=== PATIENT | female | born 1975 | race Caucasian/White ===

== ENCOUNTER → 2020-03-15 | Outpatient (CLI) | payer OTHER ==
[~2020-03-15] MED LIST: ADDERALL; ADDERALL OR; ALPRAZOLAM1 M1 PO; GEODON; GEODON60 MG PO; GEODON80 MG PO; HYDROCODONE-AP1 EACH PO; LANTUS; NEXIUM; NORCO 5-325 TA1 EACH PO; NOVOLOG100 UNIT/1; PHENERGAN 25 MG25 M1 PO; PROMETHAZINE IM; PROMETHAZINE12.5 M1; SOMA250 MG PO
== END ==
LOC: RAD 12:44
PROVIDERS: ATTEND Family Medicine
DX: M25.561 Pain in right knee (principal)

== ENCOUNTER 2020-06-18 01:57 | Inpatient (IN) | payer MEDICARE ==
[~2020-06-18] VITALS: Ht 152.4 cm; Wt 109.8 kg
[2020-06-18] VITALS (7 sets, daily range): BP systolic 133–178; BP diastolic 78–102
[~2020-06-18 01:57] MED LIST changes: -LANTUS; +LANTUS SUBQ
[2020-06-18] MEDS ORDERED: ALPRAZOLAM 0.50.5 M1 PO ×2 (04:00)
[2020-06-18] MEDS ORDERED: AMPHETAMINE SAL30 MG PO ×2 (04:01)
[2020-06-18] MEDS ORDERED: OXYCODONE HCL20 M1 PO ×2 (04:01)
[2020-06-18] MEDS ORDERED: METHADONE HCL 110 M1 PO ×2 (04:01)
[2020-06-18 05:40] LABS: CORRECTED WBC 12.3 thou/uL (4.0-11.0); HEMATOCRIT 43.7 % (37.0-47.0); HEMOGLOBIN 14.3 gm/dL (12.0-15.0); LYMPHOCYTES 23.3 % (24.0-44.0); MCH 29.7 pg (26.0-34.0); MCHC 32.7 % (28.0-37.0); MCV 90.9 fL (80.0-100.0); MONOCYTES 7.2 % (1.0-8.0); PLATELET COUNT 338 thou/uL (150-400); POLYS 67.6 % (36.0-66.0); RBC 4.81 mil/uL (4.20-5.00); RDW 13.5 % (10.5-14.5); WBC 12.3 thou/uL (4.0-11.0)
[2020-06-18 05:41] LABS: ABSOLUTE NEUTROPHILS 8.3 thou/uL (1.4-8.2); BASOPHILS 0.8 % (0.0-2.0); EOSINOPHILS 1.1 % (0.0-3.0)
[2020-06-18 05:42] LABS: ANION GAP 12 mmol/L (7-16); CHLORIDE 96 mmol/L (98-107); CO2 25 mmol/L (21-32); POTASSIUM 4.1 mmol/L (3.5-5.1); SODIUM 133 mmol/L (136-145)
[2020-06-18 05:44] LABS: BUN 8 mg/dL (7-18); CALCIUM 9.6 mg/dL (8.5-10.1); GLUCOSE 306 mg/dL (74-106); LIPASE 23 U/L (73-393); SGOT 60 U/L (15-37); TOTAL BILIRUBIN 0.3 mg/dL (0.2-1.0)
[2020-06-18 05:45] LABS: ALBUMIN 3.3 g/dL (3.4-5.0); SGPT 88 U/L (14-59); TOTAL PROTEIN 7.9 g/dL (6.4-8.2); TROPONIN-I <0.06 ng/mL (<0.06)
[2020-06-18 05:49] LABS: URINE CLARITY CLEAR; URINE COLOR YELLOW
[2020-06-18 05:50] LABS: URINE GLUCOSE-RANDOM* 3+ (Negative); URINE KETONES TRACE (Negative); URINE PROTEIN (DIPSTICK) NEGATIVE (Negative); URINE SPECIFIC GRAVITY 1.015 (1.005-1.035)
[2020-06-18 05:53] LABS: SQUAMOUS 4-10 Moderate /LPF (0-3); URINE BILIRUBIN NEGATIVE (Negative); URINE BLOOD 2+ (Negative); URINE LEUKOCYTES-REFLEX NEGATIVE (Negative); URINE NITRITE-REFLEX NEGATIVE (Negative); URINE UROBILINOGEN 0.2 E.U./dl (0.2-1.0)
[2020-06-18 05:54] LABS: BACTERIA-REFLEX 1-9 Few /HPF (None Seen); CASTS None Seen /LPF (None Seen); MUCUS None Seen strn/LPF (None Seen); URINE RBC 0-2 Rare /HPF (0-2); URINE WBC-REFLEX None Seen /HPF (0-5); YEAST-REFLEX Present (None Seen)
[2020-06-18 05:58] LABS: CRYSTALS None Seen /LPF (None Seen)
--- NOTE | 2020-06-18 19:55 | NUR ---
ASSUMED PATIENT CARE AT 0700. A/O 3. ANXIOUS.C/O BLI KNEE PAIN. OFF ISO. SLOWLY TOWARDS POC GOALS.
[2020-06-19 04:45] VITALS: BP 128/68
--- NOTE | 2020-06-19 07:26 | EKG ---
[address] [address] ELECTROCARDIOGRAM REPORT Name: ALICE PICKARDROMEL DUMONT Room #: 361-P ADM IN M.R.#: [id number] Admission: 06/18/20 Attend Phys: Ismael Morelos MD, FAAF Discharge: Date of : 79 Report #: [id number] [facility] ED Test Date: 2020-06-18 Test Time: 02:14:46 Pat Name: ANNELISE PICKARD Department: Room: 361 Gender: F Nicker: : 1975 Requested By: Hank Archer Order Number: [id number] : Rehan Payne Measurements Intervals [place] Rate: 116 P: 52 LA: 159 QRS: 14 QRSD: 85 T: 56 QT: 319 QTc: 444 Interpretive Statements Sinus tachycardia Compared to ECG 10/28/2011 01:18:34 Sinus rhythm no longer present Electronically Signed On 06-19-2020 7:26:08 POLICE CHIEF DEPUTY by Rehan Payne [email or web address] <ELECTRONICALLY SIGNED> By: Rehan Payne MD, [facility] 06/19/20 0726 0214 0214 Rehan Payne MD, FACC /EPI
--- NOTE | 2020-06-19 07:33 | NUR ---
PT AMBULATING IN ROOM WITH STANDBY ASSIST. VOIDING PER TOILET. PT IS AN ELOPEMENT RISK. CAN BE COMBATIVE. FINALLY SLEPT AFTER ORDER FOR SEROQUEL OBTAINED. SITTER ALSO ORDERED. FREQUENT OBSERVATION.
[2020-06-19 08:00] VITALS: BP 147/76
[2020-06-19 08:42] LABS: ABSOLUTE NEUTROPHILS 4.2 thou/uL (1.4-8.2); BASOPHILS 1.4 % (0.0-2.0); EOSINOPHILS 2.6 % (0.0-3.0); HEMATOCRIT 37.4 % (37.0-47.0); LYMPHOCYTES 35.4 % (24.0-44.0); MCH 30.1 pg (26.0-34.0); MCHC 32.8 g/dL (28.0-37.0); MCV 91.5 fL (80.0-100.0); MONOCYTES 6.9 % (1.0-8.0); PLATELET COUNT 270 thou/uL (150-400); POLYS 53.7 % (36.0-66.0); RBC 4.09 mil/uL (4.20-5.00); RDW 13.8 % (10.5-14.5); WBC 7.9 thou/uL (4.0-11.0)
[2020-06-19 08:43] LABS: HEMOGLOBIN 12.3 gm/dL (12.0-15.0)
[2020-06-19 08:56] LABS: ALBUMIN 2.6 g/dL (3.4-5.0); CALCIUM 8.4 mg/dL (8.5-10.1); CREATININE 0.8 mg/dL (0.6-1.0); POTASSIUM 4.3 mmol/L (3.5-5.1); TOTAL BILIRUBIN 0.3 mg/dL (0.2-1.0); TOTAL PROTEIN 6.4 g/dL (6.4-8.2)
--- NOTE | 2020-06-19 11:15 | HC ---
[place] [address] CONSULTATION Name: ANNELISE PICKARD Room #: 361-P ADM IN M.R.#: [id number] Admission: 06/18/20 Attend Phys: Ismael Morelos MD, [facility] Discharge: Date of : 79 Report #: [id number] THIS REPORT FOR: cc: Ismael Morelos MD [facility] Ismael Morelos MD [facility] Sujit Hernandez MD ~ DATE OF SERVICE: 06/19/2020 INFECTIOUS DISEASE CONSULTATION ATTENDING PHYSICIAN: Dr. Ismael Morelos. REASON FOR EVALUATION: Lactic acidemia suspected sepsis. HISTORY OF SUBJECTIVE: Chart reviewed, patient examined. This is a 44-year-old woman with a history of diabetes mellitus, insulin requiring, also seizure disorder, was admitted through Emergency Room with complaints of chest-related discomfort as well as progressive dyspnea. Evaluation noted lactic acidosis, elevated at 6.8, did have a glucose in the 300-400 range. Apparently, she reported history of some chills as well as some emesis. Evaluation was undertaken. Chest x-ray was otherwise unremarkable. COVID testing with antigen and PCR was negative. Mildly elevated hepatic transaminases. She was given a dose of Zosyn this morning. She is quite somnolent. She does arouse briefly, really does not attempt to engage. ALLERGIES: ERYTHROMYCIN, PROCHLORPERAZINE, HALDOL, MORPHINE, AZITHROMYCIN, MEPERIDINE, LEVOTHYROXINE. CURRENT MEDICATIONS: Include quetiapine, insulin glargine, alprazolam, oxycodone, dextrose, insulin lispro, methadone. PAST MEDICAL HISTORY: As noted above, diabetes mellitus type 2, insulin requiring; history of seizure disorder, schizophrenia, bipolar disease. SOCIAL HISTORY: Nonsmoker, no ethanol, no illicit drug use. FAMILY HISTORY: Noncontributory. REVIEW OF SYSTEMS: Otherwise, limited. PHYSICAL EXAMINATION: GENERAL: She is as noted quite lethargic, appears somewhat chronically ill, undernourished, [id number]-tk-[id number] distress. VITAL SIGNS: Temperature 98.1, pulse 84, respirations 19, blood pressure 147/76. [address] [address] CONSULTATION Name: ANNELISE PICKARD JULIA Room #: 361-P [facility] IN M.R.#: [id number] Admission: 06/18/20 Attend Phys: Ismael Morelos MD, FAAF Discharge: Date of : 79 Report #: [id number] SKIN: Warm, dry, no rashes. She is mildly diaphoretic. HEENT: Normocephalic. Extraocular muscles intact. She is awake briefly. NECK: Supple. LUNGS: Diminished breath sounds, otherwise clear. HEART: Regular. I do not appreciate a murmur. ABDOMEN: Soft, nontender, nondistended. EXTREMITIES: No cyanosis. GENITOURINARY AND RECTAL: Deferred. LABORATORY DATA: Urine culture with greater than ____ normal genitourinary tract eliseo. Lactic acid is now serially down to 1.5. Electrolytes: Sodium 136, potassium 4.3, chloride 100, bicarbonate is 28, anion gap of 8, BUN and creatinine 10 and 0.8, glucose is 420. AST is now 26, ALT of 52. Albumin of 2.6, total protein 6.4. Estimated GFR of 79. CBC: White count 7.9, H and H 12.3 and 37.4, platelets of 270. Blood cultures are sterile thus far. ASSESSMENT: Possible sepsis, complicated by lactic acidemia and mayyg-iu-sfqfmwm encephalopathy. At this point, it is not evident if there is any source of a pyogenic infection, it can entirely exclude a viral etiology. I think it is reasonable to, since things are correcting, hold antibacterials for this at this point. We will certainly adjust our approach as more evidence becomes available. Continue supportive care, blood sugar control. Increase activity, return to pre-illness lifestyle as possible. <ELECTRONICALLY SIGNED> By: Sujit Hernandez MD 06/19/20 1115 1027 1041 Sujit Hernandez MD /nt
[2020-06-19 12:00] VITALS: BP 134/75
[2020-06-19 15:39] VITALS: BP 152/75
--- NOTE | 2020-06-19 16:12 | NUR ---
44-year-old female presents to the ED with a chief complaint of chest discomfort, shortness of breath, fast heart rate and cold sweats. Patient reports the past 3 days prior to admission chills with shortness of breath associated with cough and vomiting. NOTE: ED reports 300-400 blood glucose levels. COVID PCR negative on 06-18-20. The patient has been admitted with Lactic Acidosis/sepsis, hyperglycemia, IDDM and right knee pain. ID has been consulted and will continue off antibiotics with no apparent focus of pyogenic infection. Cultures unrevealing per ID at this point but will continue to monitor. Per ED assessment patient arrived to the ED in a private vehicle and was assessed to be A&0 x4. Per nursing admission assessment patient states that her designated patient product representative is her mother Darby at [phone]. Per Dr[address] Morelos the patient will be discharged home on Friday06-20-20 per attending nurse on 06-19-20. Nurse also indicated that patient remains on a 1:1 for elopement precautions. Spoke with patient who wishes to go home and reiterated importance of remaining until medically cleared with an MD order. Did call to nurses station as patient believes she needs her BS checked. CM will follow for any discharge needs.
--- NOTE | 2020-06-19 18:28 | NUR ---
assumed care of pt at 0700. pt aox2 moderately anxious, frequently saying she wants to go home, making several attempts to leave. otherwsie eating well. complains of pain to knee. scans thus far unremarkable. labs improving. possible d/c tomorrow.
[2020-06-20 08:50] VITALS: BP 154/85
--- NOTE | 2020-06-20 11:31 | NUR ---
care assumed at 0700, pt alert and oriented x2, mostly anxious. denies chest pain, nausea and vomitting. pt has a sitter due to multiple attempts of wanting to leave.pt complains of left knee pain, pain med given per order. fall precautions in place. anticipating for d/c soon.
[2020-06-20 18:51] VITALS: BP 143/102
[2020-06-20 21:00] VITALS: BP 142/90
--- NOTE | 2020-06-20 22:42 | NUR ---
PT REMAINS ON 1:1, PT INITIALLY RESTLESS WANTING TO GET OUT OF BED AND WALK WHILE ALSO COMPLIANING OF R KNEE SWELLING AND PAIN. PT EASILY REDIRECTED TO WATCHING TV, PT COMPLIANT WITH MEDICATION AND PRN FOR ANXIETY THAT SHE REQUESTED. IVF INTACT. HS SNACK PROVIDED. PT WAS NOT COMPLIANT WITH INSULIN SHE REPORTED THAT SHE HAS BEEN HAVING LOW FSBS IN THE MORNINGS AND AFTERNOONS. PT DISCUSSED HOW IF THEY FIX HER KNEE THEY ARE GOING TO PUT A TRACKER CHIP IN HER AND SHE WILL NOT ALLOW THAT. PT ALSO QUESTIONED NURSE IF THERE WAS MEDICINE IN HER ICE CREAM SHE WAS REASSURED THERE WAS NOT.
[2020-06-21 02:58] VITALS: BP 156/86
--- NOTE | 2020-06-21 03:14 | NUR ---
PT AWAKENED TEARFUL STATING PEOPLE ARE PLOTTING TO KILL HER, THAT THERE ARE 26 STATES ON THE 5 DOLLAR PILL REPETITIVELY. PT REQUESTED PRN FOR KNEE PAIN AND PROVIDED. PT REPORTS THAT HER THOUGHTS NEED TO BE STOPPED. PT REDIRECTED WITH SNACK. REMAINS ON 1:1.
--- NOTE | 2020-06-21 05:55 | NUR ---
PT SLEEPING HEAVILY, WILL HAVE DAY SHIFT GIVE PT AMPHETAMINE MEDICATION.
[2020-06-21 07:13] VITALS: BP 147/78; BP 199/82
--- NOTE | 2020-06-21 12:12 | NUR ---
CARE ASSUMED AT 0700, PT ALERT AND ORIENTED X2, ANXIOUS AND IMPULSIVE AT TIMES. PT CONTINUE TO HAVE A SITTER. COMPLAINS OF KNEE PAIN, PAIN MED GIVEN PER ORDER. HIDA SCAN TO TOMORROW. FALL PRECAUTIONS IN PLACE. WILL CONTINUE TO MONITOR.
--- NOTE | 2020-06-21 13:07 | NUR ---
SW reviewed chart and spoke with nursing. Pt has 1:1 sitter at bedside. Enhanced Isolation precautions have been discontinued. Pt to have PIPIDA scan tomorrow. Plan is for pt to discharge home when medically stable. SW is following to assist as needed with discharge planning.
--- NOTE | 2020-06-21 18:10 | H ---
[facility] [place] [address] HISTORY AND PHYSICAL Name: ANNELISE PICKARD Room #: 462-P ADM IN M.R.#: [id number] Admission: 06/18/20 Attend Phys: Ismael Morelos MD, FAAF Discharge: Date of : 79 Report #: [id number] THIS REPORT FOR: cc: Ismael Morelos MD FAAFP FACEP Ismael Morelos MD FAAFP FACEP Ismael Morelos MD FAAFP FACEP ~ DATE OF SERVICE: 06/18/2020 CHIEF COMPLAINT: Sepsis; lactic acidosis. HISTORY OF PRESENT ILLNESS: The patient is a 44-year-old white female, patient of mine over many years, feeling poorly over the last 4 days. She went to [facility] on 06/17 and was sent home. She went to [facility] Emergency Department, was found to have an elevated lactate level, elevated white count with no obvious source of infection. Admitted for possible sepsis and lactic acidosis. Her blood sugar was high. She reported over 600 at home. It was in the 300 range here and she was started on insulin. She also started on Zosyn empirically and admitted to hospital. COVID-19 test was negative. PAST MEDICAL HISTORY: Insulin-dependent diabetes mellitus, seizure disorder, Port-A-Cath and Port-A-Cath removal, hernia repair, abdominal surgery, schizophrenia, bipolar affective disorder. MEDICATIONS: NovoLog sliding scale, Lantus insulin 20 units subcutaneous b.i.d., Nexium 40 mg 1 p.o. a.m., alprazolam 0.5 mg 1 p.o. b.i.d. p.r.n. anxiety, Adderall 30 mg 1 p.o. t.i.d., methadone 10 mg 2 p.o. b.i.d., oxycodone 20 mg 1 p.o. q. 6 hours p.r.n. pain. ALLERGIES: ZITHROMAX, HALDOL, LEVAQUIN, MORPHINE, ERYTHROMYCIN, DEMEROL, AND PROCHLORPERAZINE. SOCIAL HISTORY: Nondrinker. She has been involved with substance abuse in the past and smokes cigarettes. Lives with her family. Recently lost her boyfriend to heart attack in 2019. FAMILY HISTORY: Positive for diabetes. REVIEW OF SYSTEMS: GENERAL: She has had malaise, chills and fatigue. RESPIRATORY: Cough, exertional dyspnea. She had some chest pain, also exertional. GASTROINTESTINAL: She has nausea and some vomiting. Denies abdominal pain. GENITOURINARY: She has had frequency, possibly associated with her elevated blood sugar. [address] [address] HISTORY AND PHYSICAL Name: ANNELISE PICKARD JULIA Room #: 462-P ADM IN M.R.#: [id number] Admission: 06/18/20 Attend Phys: Ismael Morelos MD, FAAF Discharge: Date of : 79 Report #: [id number] Remainder of system review is negative. OBJECTIVE: VITAL SIGNS: Temperature 37.4, pulse 121, respirations 20, blood pressure 178/102, pulse ox on room air is 99%. She weighs 170 pounds. She is 5 feet tall. GENERAL: She is in no acute distress. Speaks full sentences appropriately. HEENT: Pupils equal, round, reactive to light and accommodation. Extraocular muscles intact. Pharynx unremarkable. NECK: Supple. COR: S1, S2. CHEST: Clear. ABDOMEN: Soft, nontender. EXTREMITIES: No cyanosis, clubbing or edema. Her right knee is mildly larger than the left knee. There is no erythema or obvious swelling. She is anteriorly tender mildly. NEUROLOGIC: She is alert and oriented x3, has no motor or sensory deficits. IMAGING: EKG, sinus tachycardia, rate 160, no ST segment changes. Chest x-ray was clear, reviewed by. LABORATORY EVALUATION: CBC: White count is 12.3, hemoglobin 14.3, hematocrit 43.7, platelets 338,000. Differential on the white count, 67% segmented neutrophils, 23% lymphocytes, 7% monocytes, 1% eosinophils, 1% basophils. COVID test was negative. Chemistry: Sodium 133, potassium 4.1, chloride 96, CO2 of 25, anion gap is 12, BUN 8, creatinine 1.0, estimated glomerular filtration rate 61, glucose 306. Fingerstick 345. Bilirubin 0.3, calcium is 9.6, AST 60, ALT 88, alkaline phosphatase 228. Troponin less than 0.06. Total protein 7.9, albumin 3.3, lipase 23. D-dimer 0.46. ASSESSMENT: Lactic acidosis, possibly associated with sepsis. Others; hyperglycemia, insulin-dependent diabetes mellitus, back and knee pain. PLAN: Continue antibiotics. Recheck lactate after IV fluids and antibiotics initiated. ID consult requested. <ELECTRONICALLY SIGNED> By: Ismael Morelos MD, FAAFP, FACEP 06/21/20 1810 1439 0721 Ismael Morelos MD, FAAFP, FACEP /nt
--- NOTE | 2020-06-21 20:19 | NUR ---
Assumed pt care this am, VS stable has a 1:1 sitter. Stable on her gait and used the toilet. POC followed with no signs or distress noted, alert and oriented x 2, bipolar and schitz is evident. endorsed to the night nurse.
[2020-06-21 20:32] VITALS: BP 135/73
--- NOTE | 2020-06-22 04:14 | NUR ---
Pt. rested quietly at intervals during the night when checked on during frequent rounds. Continues to have a sitter due to high flight risk. She has not attempted to leave the room since sitter has been in there this shift. She c/o chronic generalized pain and has been medicated for it (see emar) with relief noted.
[2020-06-22 07:50] VITALS: BP 146/84
[2020-06-22 09:41] LABS: ABSOLUTE NEUTROPHILS 5.2 thou/uL (1.4-8.2); BASOPHILS 0.5 % (0.0-2.0); EOSINOPHILS 3.8 % (0.0-3.0); HEMATOCRIT 38.5 % (37.0-47.0); HEMOGLOBIN 12.7 gm/dL (12.0-15.0); LYMPHOCYTES 34.1 % (24.0-44.0); MCH 30.2 pg (26.0-34.0); MCHC 33.1 g/dL (28.0-37.0); MCV 91.4 fL (80.0-100.0); MONOCYTES 7.4 % (1.0-8.0); PLATELET COUNT 302 thou/uL (150-400); POLYS 54.2 % (36.0-66.0); RBC 4.21 mil/uL (4.20-5.00); RDW 13.6 % (10.5-14.5); WBC 9.6 thou/uL (4.0-11.0)
[2020-06-22 10:02] LABS: ALBUMIN 2.6 g/dL (3.4-5.0); CALCIUM 8.3 mg/dL (8.5-10.1); CREATININE 0.6 mg/dL (0.6-1.0); POTASSIUM 3.7 mmol/L (3.5-5.1); TOTAL BILIRUBIN 0.2 mg/dL (0.2-1.0); TOTAL PROTEIN 6.4 g/dL (6.4-8.2)
--- NOTE | 2020-06-22 12:47 | NUR ---
Nutrition Note: Pt seen for LOS. Pt noted to have good appetite at present, eating 95-100% of meals. Denies wt loss TIN STACKER. No new wt taken since 06/18. No c/o GI distress at present. No pressure ulcers noted. Pt remains low nutritional risk at present.
--- NOTE | 2020-06-22 13:28 | NUR ---
ASSUMED PT CARE THIS AM. PT VSS, A&OX2. PT VERY PARANOID WITH CARES SO FAR THIS SHIFT. KEEPS STATING "DONT PUT A CHIP IN ME". COMPLAINS OF GENERALIZED PAIN, RESPONDING WELL TO MEDS GIVEN PER EMAR. PT HAD PIPIDA SCAN THIS MORNING, AND MEDS WERE HELD UNTIL PATIENT RETURNED FROM SCAN. PT IS CONTINENT, AND AMBULATES TO THE BATHROOM WITH LITTLE ASSIST. PT HAS A 1:1 SITTER. IV PATENT, FLUIDS INFUSING WELL.
--- NOTE | 2020-06-22 16:07 | NUR ---
PT HAD PIPIDA SCAN DONE THIS DAY. PLAN IS FOR PT TO RETURN HOME OCNE MEDICALLY STABLE. PT CONTINUES WITH 1:1 SITTER RELATED TO ELOPEMENT RISK. CM TO FOLLOW INDICATED WITH DC PLANNING.
[2020-06-22] MEDS ORDERED: QUETIAPINE FUM300 MG PO ×2 (16:22)
[2020-06-22 17:47] VITALS: BP 146/84
== END 2020-06-22 18:19 | disposition home or self-care (01) | DRG 871 ==
LOC: ER 01:57 → EROBS 05:39 → 3W 05:39 → 4W 06-21 14:21
PROVIDERS: Emergency Medicine; ADMIT Family Medicine; ATTEND Family Medicine
DX: A41.9 Sepsis, unspecified organism (principal); G92 Toxic encephalopathy; K82.1 Hydrops of gallbladder; E11.65 Type 2 diabetes mellitus with hyperglycemia; G40.909 Epilepsy, unspecified, not intractable, without status epilepticus; M25.561 Pain in right knee; M25.461 Effusion, right knee; F25.0 Schizoaffective disorder, bipolar type; S80.01XA Contusion of right knee, initial encounter; Z20.822 Contact with and (suspected) exposure to COVID-19; Z88.1 Allergy status to other antibiotic agents; Z88.6 Allergy status to analgesic agent; Z88.8 Allergy status to other drugs, medicaments and biological substances; Z79.4 Long term (current) use of insulin; X58.XXXA Exposure to other specified factors, initial encounter; Y93.89 Activity, other specified; Y92.89 Other specified places as the place of occurrence of the external cause; Y99.8 Other external cause status
CPT/HCPCS: 10047; 10779; 10879

== ENCOUNTER 2020-06-29 00:34 | Emergency (ER) | payer MEDICARE ==
[~2020-06-29] VITALS: Ht 152.4 cm; Wt 108.1 kg
[~2020-06-29 00:34] MED LIST changes: +ALPRAZOLAM 0.50.5 M1 PO; +AMPHETAMINE SAL30 MG PO; +METHADONE HCL 110 M1 PO; +OXYCODONE HCL20 M1 PO; +QUETIAPINE FUM300 MG PO
[2020-06-29 00:59] LABS: ABSOLUTE NEUTROPHILS 4.7 thou/uL (1.4-8.2); BASOPHILS 0.9 % (0.0-2.0); EOSINOPHILS 3.1 % (0.0-3.0); HEMOGLOBIN 13.2 gm/dL (12.0-15.0); LYMPHOCYTES 29.7 % (24.0-44.0); MCH 29.7 pg (26.0-34.0); MCHC 32.9 g/dL (28.0-37.0); MCV 90.4 fL (80.0-100.0); MONOCYTES 8.2 % (1.0-8.0); PLATELET COUNT 310 thou/uL (150-400); POLYS 58.1 % (36.0-66.0); RBC 4.43 mil/uL (4.20-5.00); RDW 13.5 % (10.5-14.5); WBC 8.1 thou/uL (4.0-11.0)
[2020-06-29 01:06] LABS: URINE BILIRUBIN NEGATIVE (Negative); URINE BLOOD 1+ (Negative); URINE CLARITY CLEAR; URINE COLOR YELLOW; URINE GLUCOSE-RANDOM* 3+ (Negative); URINE KETONES NEGATIVE (Negative); URINE LEUKOCYTES-REFLEX NEGATIVE (Negative); URINE NITRITE-REFLEX NEGATIVE (Negative); URINE PROTEIN (DIPSTICK) NEGATIVE (Negative); URINE SPECIFIC GRAVITY 1.015 (1.005-1.035); URINE UROBILINOGEN 0.2 E.U./dl (0.2-1.0)
[2020-06-29 01:13] LABS: ANION GAP 12 mmol/L (7-16); BUN 8 mg/dL (7-18); CALCIUM 9.3 mg/dL (8.5-10.1); CHLORIDE 95 mmol/L (98-107); CO2 28 mmol/L (21-32); GLUCOSE 397 mg/dL (74-106); POTASSIUM 4.2 mmol/L (3.5-5.1); SODIUM 135 mmol/L (136-145)
[2020-06-29 01:23] LABS: SGOT 29 U/L (15-37); SGPT 34 U/L (30-65); TOTAL BILIRUBIN 0.2 mg/dL (0.2-1.0); TROPONIN-I <0.06 ng/mL (<0.06)
[2020-06-29 01:30] LABS: BACTERIA-REFLEX 1-9 Few /HPF (None Seen); CASTS None Seen /LPF (None Seen); MUCUS None Seen strn/LPF (None Seen); SQUAMOUS 0-3 Few /LPF (0-3); URINE RBC 0-2 Rare /HPF (0-2); URINE WBC-REFLEX 0-5 Rare /HPF (0-5)
[2020-06-29 01:31] LABS: CRYSTALS None Seen /LPF (None Seen)
[2020-06-29 03:28] VITALS: BP 177/102
--- NOTE | 2020-06-29 07:09 | EKG ---
[place] [address] [facility] [place] [address] ELECTROCARDIOGRAM REPORT Name: ANNELISE PICKARD Room #: DEP [place]#: [id number] Admission: 06/29/20 Attend Phys: Discharge: 06/29/20 Date of : 79 Report #: [id number] [facility] ED Test Date: 2020-06-29 Test Time: 00:51:17 Pat Name: ANNELISE PICKARD Department: Room: Gender: F [employer]: PETER : 1975 Requested By: Kulwant Acuna Order Number: [id number] MD: Rehan Payne Measurements Intervals [place] Rate: 96 P: 46 WI: 156 QRS: 33 QRSD: 87 T: 78 QT: 361 QTc: 457 Interpretive Statements Sinus rhythm Probable left atrial enlargement Compared to ECG 06/18/2020 02:14:46 Sinus tachycardia no longer present Electronically Signed On 06-29-2020 7:09:30 AMMUNITION COMPONENTS INSPECTOR by Rehan Payne [email or web address] <ELECTRONICALLY SIGNED> By: Rehan Payne MD, [facility] 06/29/20 0709 005 0051 Rehan Payne MD, FACC /EPI
== END 2020-06-29 03:36 | disposition home or self-care (01) ==
LOC: ER 00:34
PROVIDERS: Emergency Medicine
DX: S60.420A Blister (nonthermal) of right index finger, initial encounter (principal); E11.65 Type 2 diabetes mellitus with hyperglycemia; M25.561 Pain in right knee; Z88.1 Allergy status to other antibiotic agents; Z88.8 Allergy status to other drugs, medicaments and biological substances; Z88.5 Allergy status to narcotic agent; Z79.4 Long term (current) use of insulin; Z79.899 Other long term (current) drug therapy; Z98.890 Other specified postprocedural states; X58.XXXA Exposure to other specified factors, initial encounter; Y93.89 Activity, other specified; Y92.89 Other specified places as the place of occurrence of the external cause; Y99.9 Unspecified external cause status

== ENCOUNTER 2020-08-30 12:01 | Emergency (ER) | payer MEDICARE ==
[~2020-08-30] VITALS: Ht 152.4 cm; Wt 102.5 kg
[2020-08-30 14:21] LABS: BASOPHILS 0.9 % (0.0-2.0); EOSINOPHILS 1.4 % (0.0-3.0); HEMATOCRIT 43.1 % (37.0-47.0); HEMOGLOBIN 14.5 gm/dL (12.0-15.0); MCH 30.2 pg (26.0-34.0); MCHC 33.7 g/dL (28.0-37.0); MCV 89.6 fL (80.0-100.0); MONOCYTES 5.5 % (1.0-8.0); PLATELET COUNT 325 thou/uL (150-400); POLYS 63.2 % (36.0-66.0); RBC 4.81 mil/uL (4.20-5.00); RDW 13.7 % (10.5-14.5); WBC 9.5 thou/uL (4.0-11.0)
[2020-08-30 14:29] LABS: CREATININE 0.8 mg/dL (0.6-1.0); POTASSIUM 4.5 mmol/L (3.5-5.1)
[2020-08-30 14:35] LABS: ALBUMIN 3.3 g/dL (3.4-5.0); TOTAL BILIRUBIN 0.3 mg/dL (0.2-1.0); TOTAL PROTEIN 7.5 g/dL (6.4-8.2)
[2020-08-30 14:49] LABS: URINE BILIRUBIN NEGATIVE (Negative); URINE BLOOD NEGATIVE (Negative); URINE CLARITY CLEAR; URINE COLOR YELLOW; URINE GLUCOSE-RANDOM* 3+ (Negative); URINE KETONES 1+ (Negative); URINE LEUKOCYTES-REFLEX NEGATIVE (Negative); URINE NITRITE-REFLEX NEGATIVE (Negative); URINE PROTEIN (DIPSTICK) NEGATIVE (Negative); URINE UROBILINOGEN 0.2 E.U./dl (0.2-1.0)
[2020-08-30 15:24] VITALS: BP 137/78
== END 2020-08-30 15:25 | disposition home or self-care (01) ==
LOC: ER 12:01
PROVIDERS: Emergency Medicine
DX: E11.65 Type 2 diabetes mellitus with hyperglycemia (principal); Z20.822 Contact with and (suspected) exposure to COVID-19; R06.00 Dyspnea, unspecified; Z88.1 Allergy status to other antibiotic agents; Z88.8 Allergy status to other drugs, medicaments and biological substances; Z88.5 Allergy status to narcotic agent; Z79.4 Long term (current) use of insulin

== ENCOUNTER 2020-10-26 10:28 | Emergency (ER) | payer MEDICARE ==
[~2020-10-26] VITALS: Ht 152.4 cm; Wt 72.6 kg
[2020-10-26 10:33] VITALS: BP 164/94
== END 2020-10-26 11:24 | disposition home or self-care (01) ==
LOC: ER 10:28
DX: L23.7 Allergic contact dermatitis due to plants, except food (principal); Z53.21 Procedure and treatment not carried out due to patient leaving prior to being seen by health care provider